=== PATIENT | male | born 1965 | race Hispanic/Latino ===

== ENCOUNTER 2020-05-08 00:22 | Emergency (ER) | payer BC ==
[2020-05-08] MEDS ORDERED: IBUPROFEN 400 MG TABLET ONE (01:06)
== END 2020-05-08 01:31 | disposition home or self-care (01) ==
LOC: EDH 00:22
DX: B02.9 Zoster without complications (principal)
CPT/HCPCS: 99282

== ENCOUNTER 2021-03-27 19:28 | Emergency (ER) | payer BC ==
[~2021-03-27] VITALS: Ht 170.2 cm; Wt 76.2 kg
[2021-03-27 19:33] VITALS: BP 127/68
[2021-03-27] MEDS ORDERED: ACETAMINOPHEN 500 MG TABLET ONE (19:48)
[2021-03-27] MEDS ORDERED: ACETAMINOPHEN 500 MG TABLET PO ONE (20:00)
[2021-03-27 20:08] LABS: BASOPHILS % (AUTO) 0.4 % (0.0-5.0); EOSINOPHILS % (AUTO) 1.8 % (0.0-8.0); HEMATOCRIT 37.1 % (42-54); MEAN CORPUSCULAR HEMOGLOBIN 28.5 pg (27.0-33.0); MEAN CORPUSCULAR HGB CONC 32.3 g/dL (32.0-36.0); MEAN CORPUSCULAR VOLUME 88.1 fL (79-99); MONOCYTES % (AUTO) 8.3 % (3.0-13.0); NEUTROPHILS % (AUTO) 79.2 % (40.0-77.0); PLATELET COUNT (AUTO) 281 K/uL (130-400); RED BLOOD CELL COUNT(AUTO) 4.21 MIL/uL (4.50-6.20); RED CELL DISTRIBUTION WIDTH 13.8 % (11.0-15.5); WHITE BLOOD COUNT (AUTO) 5.6 K/uL (4.8-10.8)
[2021-03-27 20:28] LABS: CREATININE 1.1 mg/dL (0.5-1.5); POTASSIUM 4.9 mmol/L (3.5-5.1)
[2021-03-27] MEDS ORDERED: 0.9%NACL 1000ML 1,000 ML IV ONE ×2 (20:30→22:57)
[2021-03-27 20:32] LABS: ALBUMIN 3.4 g/dL (3.5-5.0); BILIRUBIN,TOTAL 0.7 mg/dL (0.2-1.0); TOTAL PROTEIN, SERUM 8.6 g/dL (6.0-8.3)
[2021-03-27 20:50] LABS: APPEARANCE,URINE Cloudy (CLEAR); BILIRUBIN,URINE Small (NEGATIVE); COLOR,URINE Dark Yellow (YELLOW); GLUCOSE, URINE (UA) Negative (NEGATIVE); KETONES,URINE Trace mg/dL (NEGATIVE); LEUKOCYTE ESTERASE ,URINE Small (NEGATIVE); NITRATE,URINE Negative (NEGATIVE); OCCULT BLOOD,URINE Negative (NEGATIVE); PH,URINE 5.5 (5.0-8.0); PROTEIN,URINE POS 1+ mg/dL (NEGATIVE)
[2021-03-27] MEDS ORDERED: IOHEXOL 350 MG/ML 100ML INFUS..BTL IV ONE (21:11)
[2021-03-27 21:12] LABS: RBC,URINE 0-1 /HPF (0-1)
[2021-03-27 21:13] LABS: BACTERIA,URINE Few /HPF (None Seen); MUCUS,URINE Few LPF (None Seen); SQUAMOUS EPITHELIAL CELL,UR Rare /HPF (0-2)
[2021-03-27] MEDS ORDERED: ALBU8.5H8 IH (23:21)
[2021-03-27] MEDS ORDERED: AZIT250T9 PO (23:21)
[2021-03-27] MEDS ORDERED: BENZ-17 PO (23:21)
[2021-03-27] MEDS ORDERED: AZITHROMYCIN 250 MG TABLET PO ONE ×2 (23:30→23:32)
== END 2021-03-27 23:50 | disposition home or self-care (01) ==
LOC: EDH 19:28
DX: R91.1 Solitary pulmonary nodule (principal); R05 Cough; R50.9 Fever, unspecified; Z20.822 Contact with and (suspected) exposure to COVID-19; Z79.899 Other long term (current) drug therapy
CPT/HCPCS: 36415; 71260; 74177; 80053; 81001; 83605; 84443; 84484; 85025; 87040 ×2; 87088; 87635; 87804 ×2; 96360; 99285; C9803; J7030; Q9967